=== PATIENT | female | born 1975 | race Caucasian/White ===

== ENCOUNTER 2020-06-17 16:54 | Emergency (ER) | payer OTHER, SELFPAY ==
--- NOTE | ~2020-06-17 | XR_ITS ---
XR wrist RT min 3V DATE: 06/17/2020 17:07 INDICATION: Fall, right wrist injury, lateral pain TECHNIQUE: 4 views of wrist, including forearm COMPARISON: None FINDINGS: No fracture or dislocation, periosteal reaction or bone destruction of the forearm or wrist is evident. Alignment is intact at the elbow and wrist joints. IMPRESSION: Negative Reviewed, dictated and finalized at location A. IMPRESSION: Negative
--- NOTE | 2020-06-17 17:07 | ED.UPPEXIN ---
HPI - Extremity Injury (Upper) General Chief Complaint: Extremity Injury, Upper Stated Complaint: R/wrist pain Time Seen by Provider: 06/17/20 17:07 Source: patient and RN notes reviewed Mode of arrival: ambulatory Limitations: no limitations History of Present Illness HPI narrative: Patient presents today complaining of right wrist and forearm pain after falling from standing height onto outstretched hand. Injury occurred 1.5 hours prior to arrival. She tripped over a dog gate at home. Currently rates her pain 6/10 and has tried ice prior to arrival. MD complaint: injury to: right and forearm Related Data Home Medications Medication Instructions Recorded Confirmed No Home Medications 06/17/20 06/17/20 Allergies Allergy/AdvReac Type Severity Reaction Status Date / Time No Known Allergies Allergy Verified 06/17/20 16:57 Review of Systems Review of Systems: Narrative: CONSTITUTIONAL: Denies body aches, fever, chills, or sweats. EYES: Denies visual changes, redness, or discharge. ENT: Denies rhinorrhea, congestion, sore throat, or otalgia. CARDIOVASCULAR: Denies chest pain, palpitations, or edema. RESPIRATORY: Denies cough or dyspnea. GASTROINTESTINAL: Denies abdominal pain, nausea, vomiting, or diarrhea. GENITOURINARY: Denies dysuria or hematuria. SKIN: Denies rash, itching, or wounds. MUSCULOSKELETAL: Denies back pain, or myalgia. + Right forearm and wrist injury NEUROLOGIC: Denies headache, numbness, tingling, or weakness. PSYCH: Denies depression or anxiety. PMFSH Social History Social History Gender identity (if verbalized by the patient): Female Comments At time of signature, I have reviewed and agree with nursing past medical, surgical, social and family history unless otherwise noted. Please see nursing chart for further information. There is no relevant family history pertinent to the presenting complaint Exam Narrative: Exam Narrative: GENERAL: Well-appearing, well-nourished, and in no acute pain distress. HEAD: Normocephalic, atraumatic. EYES: EOMI. No redness or drainage. Conjunctivae normal. ENT: Mucous membranes pink and moist. NECK: Normal AROM. CHEST: No respiratory distress. EXTREMITIES: Right wrist: No tenderness, edema, ecchymosis, or erythema noted. Distal sensation intact. Capillary refill normal. Radial pulse normal. No snuffbox tenderness. Patient had some mild tenderness to the mid radius without edema, ecchymosis. Pain increases in the forearm with extension, pronation and supination of the wrist. No deformity noted. SKIN: Warm, dry, no rash. Capillary refill normal. Normal skin turgor. NEURO: No focal deficits. Alert and oriented x3. Gait steady. PSYCH: Normal affect. +anxious with constant movement of her right knee up and down throughout exam. Course Vital Signs Vital signs: Vital Signs Temperature 98.8 F 06/17/20 17:10 Pulse Rate 81 06/17/20 17:10 Respiratory Rate 18 06/17/20 17:10 Blood Pressure 142/79 H 06/17/20 17:10 Pulse Oximetry 100 06/17/20 17:10 Temperature 98.8 F 06/17/20 17:10 Pulse Rate 81 06/17/20 17:10 Respiratory Rate 18 06/17/20 17:10 Blood Pressure 142/79 H 06/17/20 17:10 Pulse Oximetry 100 06/17/20 17:10 Reviewed. Pt has been instructed to follow up with her PCP regarding her elevated blood pressure today. MDM - Extremity Injury (Upper) Differential Diagnosis Differential diagnosis: Likely sprain and strain of wrist, fracture of wrist and other (Forearm fracture, contusion) Imaging Data Radiologist's impression: ITS Impressions Wrist X-Ray 06/17/20 17:20 IMPRESSION: Negative Critical Care Time Critical Care Time Critical Care Time: No Discharge Plan Discharge Clinical Impression: Sprain of forearm, right Patient Disposition: Home, Self-Care Condition: Stable Instructions: Sprain (ED) Additional Instructions: Your xray is negative for fracture today. Your s
[2020-06-17 17:10] VITALS: BP 142/79; PULSE 81; RESP 18; TEMP 37.1; O2SAT 100
== END 2020-06-17 17:26 | disposition home or self-care (01) ==
PROVIDERS: Emergency Provider Nurse Practitioner
DX: S59.811A Other specified injuries right forearm, initial encounter (principal); W18.30XA Fall on same level, unspecified, initial encounter
CPT/HCPCS: 73110; 99213; G0463

== ENCOUNTER 2020-10-16 22:45 | Emergency (ER) | payer OTHER, SELFPAY ==
--- NOTE | ~2020-10-16 | XR_ITS ---
EXAMINATION: XR chest 2V EXAM DATE: 10/16/2020 23:07 INDICATION: chest coldness pressure, left hand/arm tingling,. TECHNIQUE: Frontal and lateral projections of the chest obtained and reviewed. There is no prior karen dy for comparison. FINDINGS: The lungs are clear. There are no pleural effusions. The cardiomediastinal silhouette is within normal limits. There is no pneumothorax suspected. The bones and soft tissues are unremarkab le. IMPRESSION: No acute cardiopulmonary findings. Reviewed, dictated and finalized at location G. RIBUTION CLERK
[2020-10-16 22:52] VITALS: BP 161/76; PULSE 82; RESP 16; TEMP 36.4; O2SAT 100
--- NOTE | 2020-10-16 22:58 | ECG_ITS ---
Measurements Intervals [place] Rate: 73 P: 19 SC: 158 QRS: 71 QRSD: 82 T: 39 QT: 362 QTc: 400 Interpretive Statements SINUS RHYTHM CANNOT RULE OUT SEPTAL INFARCT, AGE INDETERMINATE ABNORMAL ECG Electronically Signed On 10-17-2020 7:08:49 SKIDDER OPERATOR by Wai Power D.O.
[2020-10-16 23:22] LABS: Basophils Absolute Auto 0.1 K/mm3 (0.0-0.1); Basophils Percent Auto 0.9 % (0.2-1.2); Eosinophils Absolute Auto 0.3 K/mm3 (0-0.3); Eosinophils Percent Auto 3.9 % (0-4.4); Hematocrit 39.9 % (37.0-47.0); Hemoglobin 13.9 g/dL (12.0-15.0); Immature Granulocyte Absolute 0.02 K/mm3 (0.00-0.031); Immature Granulocyte Percent A 0.3 % (0-0.5); Lymphocytes Absolute Auto 2.35 K/mm3 (0.9-3.2); Mean Corpuscular HGB Conc 34.8 g/dl (32-36); Mean Corpuscular Hemoglobin 33.4 pg (26-34); Mean Corpuscular Volume 95.9 fl (80-100); Monocytes Absolute Auto 0.5 K/mm3 (0.1-0.6); Monocytes Percent Auto 8.3 % (2.6-8.5); Neutrophils Absolute Auto 3.1 K/mm3 (1.3-6.7); Neutrophils Percent Auto 49.6 % (45.5-73.1); Platelet Count Result 325 k/mm3 (150-375); Red Blood Count 4.16 M/mm3 (4.2-5.4); Red Cell Distribution Width 12.2 % (11.5-14.5); White Blood Count 6.4 K/mm3 (4.5-10.0)
[2020-10-16 23:25] LABS: Prothrombin Time 13.4 Seconds (11.1-14.7)
[2020-10-16 23:26] LABS: Anion Gap 6 mmol/L (8-16); Blood Urea Nitrogen 12 mg/dL (7-17); Calcium 9.3 mg/dL (8.4-10.2); Carbon Dioxide 33 mmol/L (22-30); Chloride 100 mmol/L (98-107); Estimated CRCL calculation 83 ml/min; Estimated Glomerular Filt Rate > 60; Glucose 117 mg/dL (65-105); Partial Thromboplastin Time 28.4 SECONDS (22.3-36.8); Potassium 3.8 mmol/L (3.4-5.0); Sodium 139 mmol/L (137-145)
[2020-10-16] MEDS: KETOROLAC 30 MG/ML VIAL (*BKC) IV PUSH (23:27)
[2020-10-16 23:31] VITALS: BP 122/69; PULSE 65; RESP 12; O2SAT 100
[2020-10-16 23:34] VITALS: BP 122/69; PULSE 68; RESP 12; O2SAT 100
[2020-10-16 23:38] LABS: Troponin I < 0.012 ng/mL (0.000-0.034)
[2020-10-17 00:31] VITALS: BP 127/70; PULSE 71; RESP 17; O2SAT 100
[2020-10-17 01:01] VITALS: BP 106/67; PULSE 70; RESP 10; O2SAT 100
--- NOTE | 2020-10-17 01:12 | ED.GENADULT ---
HPI - General Adult General Chief complaint: Chest Pain Stated complaint: L ARM PN/NUMBNESS [id number] Time Seen by Provider: 10/16/20 22:48 History of Present Illness HPI narrative: Patient is a 45-year-old female who presents ER with left arm tingling and pain. Pain began in her upper arm around 6 PM. A while later she can have tingling in her hand. Tingling is persisted and the pain is subsided. She also had some mild left back/neck pain. At 1 point she did have some discomfort in her chest that she describes as being cold, unsure if she was getting anxious. No exertional component. She was laying down at began. No previous cardiac history. No family history. Related Data Allergies Allergy/AdvReac Type Severity Reaction Status Date / Time No Known Allergies Allergy Verified 06/17/20 16:57 Review of Systems Review of Systems: All systems reviewed & are unremarkable except as noted in HPI and below Constitutional: Constitutional: Denies chills, Denies fever(s) and Denies weakness ENT: Denies nasal congestion and Denies sore throat Cardiovascular: Cardiovascular: Reports chest pain, Denies rapid heart rate and Denies radiating jaw, neck or arm pain Respiratory: Respiratory: Denies cough, Denies dyspnea and Denies wheezing Gastrointestinal: Gastrointestinal: Denies nausea and Denies vomiting Neurologic: Denies focal weakness and Reports numbness PMFSH Past Medical History Medical History (Updated 10/17/20 @ 01:17 by Huey Dawson MD) Healthy female adult Surgical History Surgical History (Updated 10/17/20 @ 01:14 by Huey Dawson MD) History of appendectomy History of tonsillectomy Social History Social History (Updated 10/17/20 @ 01:14 by Huey Dawson MD) Smoking status: Never smoker Gender identity (if verbalized by the patient): Female Exam Narrative: Exam Narrative: GENERAL: Well-appearing, well-nourished, and in no acute distress. HEAD: Normocephalic, atraumatic. NECK: Supple. Mild left trapezius tenderness CHEST: Clear to auscultation. No respiratory distress. HEART: Regular rate and rhythm. Normal peripheral pulses. EXTREMITIES: Normal range of motion. No edema. SKIN: Warm, dry, no rash. NEURO: Alert and oriented x3. No sharp touch deficit left arm. PSYCH: Normal mood and affect. Course Course Emergency Course: Symptoms improving with Toradol. Informed of results. Likely cervical radiculopathy. Recommend follow-up with PCP. Vital Signs Vital signs: Vital Signs Temperature 97.6 F 10/16/20 22:52 Pulse Rate 82 10/16/20 22:52 Respiratory Rate 16 10/16/20 22:52 Blood Pressure 161/76 H 10/16/20 22:52 Pulse Oximetry 100 10/16/20 22:52 Temperature 97.6 F 10/16/20 22:52 Pulse Rate 68 10/16/20 23:34 Respiratory Rate 12 10/16/20 23:34 Blood Pressure 122/69 10/16/20 23:34 Pulse Oximetry 100 10/16/20 23:34 Medical Decision Making Vital Signs Vital Signs: Vital Signs Temperature 97.6 F 10/16/20 22:52 Pulse Rate 82 10/16/20 22:52 Respiratory Rate 16 10/16/20 22:52 Blood Pressure 161/76 H 10/16/20 22:52 Pulse Oximetry 100 10/16/20 22:52 Temperature 97.6 F 10/16/20 22:52 Pulse Rate 68 10/16/20 23:34 Respiratory Rate 12 10/16/20 23:34 Blood Pressure 122/69 10/16/20 23:34 Pulse Oximetry 100 10/16/20 23:34 Lab Data Result diagrams: 10/16/20 23:03 10/16/20 23:03 Labs: Lab Results 10/16/20 10/16/20 10/16/20 Range/Units 23:03 23:03 23:03 WBC 6.4 (4.5-10.0) K/mm3 RBC 4.16 L (4.2-5.4) M/mm3 Hgb 13.9 (12.0-15.0) g/dL Hct 39.9 (37.0-47.0) % MCV 95.9 (80-100) fl MCH 33.4 (26-34) pg MCHC 34.8 (32-36) g/dl RDW 12.2 (11.5-14.5) % Plt Count 325 (150-375) k/mm3 MPV 9.0 (7.4-10.4) fl Immature Gran % (Auto) 0.3 (0-0.5) % Neut % (Auto) 49.6 (45.5-73.1) % Lymph % (Auto) 37.0 (18.3-44.2) % [place] % (Aut
[2020-10-17 01:15] VITALS: PULSE 64; RESP 10; O2SAT 100
== END 2020-10-17 01:20 | disposition home or self-care (01) ==
PROVIDERS: Emergency Provider Emergency Medicine; PCP Physician Assistant
DX: M54.12 Radiculopathy, cervical region (principal)
CPT/HCPCS: 36415; 71046; 80048; 84484; 85025; 85610; 85730; 93005; 96374; 99284; J1885

== ENCOUNTER → 2021-12-15 16:01 | Outpatient (CLI) | payer OTHER, SELFPAY ==
--- NOTE | ~2021-12-15 | MM_ITS ---
EXAMINATION: MM scrn rosy implant BI w lottie HISTORY: Screening mammogram TECHNIQUE: Craniocaudal and mediolateral oblique 3-D tomosynthesis images with implant displacement a nd synthetic 2-D images were generated. Craniocaudal and mediolateral oblique views of the breasts wi thout implant displacement were obtained using full field digital mammography. CAD analysis was submi tted and interpreted. COMPARISON: 06/14/2018 BREAST PARENCHYMAL COMPOSITION: The breasts are heterogeneously dense, which may obscure small masses . FINDINGS: There is no evidence of suspicious mass, calcification, or architectural distortion to sugg est malignancy in either breast. There has been no suspicious interval change. IMPRESSION: 1. No mammographic evidence of malignancy. 2. Recommend routine screening mammography in one year. BI-RADS Category 1: Negative Reviewed, dictated and finalized at location A. STRAP CUTTER
== END ==
PROVIDERS: PCP Physician Assistant; Visit Provider Physician Assistant
DX: Z12.31 Encounter for screening mammogram for malignant neoplasm of breast (principal)
CPT/HCPCS: 77063; 77067

== ENCOUNTER 2022-11-02 05:57 | Day surgery (SDC) | payer OTHER, SELFPAY ==
[2022-08-19 14:02] VITALS: BMI 23.2
[2022-10-20 14:53] VITALS: BMI 21.9
--- NOTE | 2022-10-30 12:34 | P.PNAN_ITS ---
Anes - Initial Pre Proc Eval Procedure: Operation Date: 11/02/22 07:30 Proposed Procedures p Screening Colonoscopy - Derrick Rios MD Date/Time: 10/30/22 12:34 Surgeon: Derrick Rios MD Pre Op Diagnosis: Neoplasm screening Patient Data Age: 47 Gender: F Height: 1.7 m Weight: 63.5 kg Allergies Allergy/AdvReac Type Severity Reaction Status Date / Time No Known Allergies Allergy Verified 11/02/22 06:25 Home Medications Medication Instructions Recorded Confirmed Type ibuprofen 200 mg tablet (Advil) 200 mg PO Q6H PRN Headache 10/20/22 11/02/22 History topiramate 50 mg tablet (Topamax) 50 mg PO BID 10/20/22 11/02/22 History Patient hx anesthesia problems: none Family hx anesthesia problems: none Results Review: All pre-operative results and documents have been reviewed as part of the pre- operative evaluation. PMFSH Past Medical History Medical History (Updated 10/30/22 @ 12:34 by Hussein Grider DO) Migraine Surgical History Surgical History (Updated 10/30/22 @ 12:34 by Hussein Grider DO) History of appendectomy History of hysterectomy History of tonsillectomy Social History Social History (Updated 10/17/20 @ 01:14 by Huey Dawson MD) Smoking status: Never smoker Substance use: never Substance use type: does not use Living arrangements: with family Gender identity (if verbalized by the patient): Female Spiritual care concerns: No Anes - Eval Final PreProcedure Day of Procedure 10/30/22 12:34 Patient weight: normal Heart: regular rate and rhythm Lungs: clear to auscultation and normal air movement Airway: Mallampati scale class II Neurological: alert and oriented Last oral intake: >/= 8 hours ASA classification: II Emergent: no Anesthetic plan: proceed Anesthesia type and monitoring: general GIVS and standard monitoring Results Review: All pre-operative results and documents have been reviewed as part of the pre- operative evaluation. Informed Consent: The patient's anesthetic plan and its attendant risks and benefits were discussed with the patient/family/POA. Questions were solicited and answers provided to the satisfaction of the patient/family/POA.
[2022-11-02 06:15] VITALS: BP 96/77; PULSE 124; RESP 16; TEMP 36.2; O2SAT 100
[2022-11-02] MEDS: LACTATED RINGERS 1,000 ML 150 ML IV CONT (06:29)
--- NOTE | 2022-11-02 07:29 | PM.HPGS ---
History of Present Illness History of Present Illness Consent: Risks, benefits, and alternatives have been discussed and questions answered. Patient agrees to proceed with procedure. Chief complaint: Neoplasm screening Narrative: Janae German is a 47 year old female here for first screening colonoscopy Review of Systems Constitutional: Constitutional: Denies headache(s) and Denies weakness Eyes: Eyes: Denies blurry vision ENT: Reports Normal hearing present, Denies headache(s) and Denies neck pain Cardiovascular: Cardiovascular: Denies chest pain and Denies dyspnea Respiratory: Respiratory: Denies dyspnea Gastrointestinal: Gastrointestinal: Reports no additional gastrointestinal complaints Genitourinary: Genitourinary: Denies dysuria Musculoskeletal: Musculoskeletal: Denies neck pain Integumentary/Breasts: Skin/Breast: Denies dry skin Neurologic: Reports Normal hearing present, Denies headache(s) and Denies weakness Psychiatric: Psychiatric: Denies anxiety Endocrine: Endocrine: Denies change in body appearance Hematologic/Lymphatic: Hematologic/Lymphatic: Denies easy bleeding Allergic/Immunologic: Allergic/Immunologic: Denies urticaria PMFSH Past Medical History Medical History (Updated 11/02/22 @ 07:30 by Derrick Rios MD) Colon cancer screening Migraine Surgical History Surgical History (Updated 10/30/22 @ 12:34 by Hussein Grider DO) History of appendectomy History of hysterectomy History of tonsillectomy Social History Social History (Updated 10/17/20 @ 01:14 by Huey Dawson MD) Smoking status: Never smoker Substance use: never Substance use type: does not use Living arrangements: with family Gender identity (if verbalized by the patient): Female Spiritual care concerns: No Meds Home Medications and Allergies Home Medications Medication Instructions Recorded Confirmed Type ibuprofen 200 mg tablet (Advil) 200 mg PO Q6H PRN Headache 10/20/22 11/02/22 History topiramate 50 mg tablet (Topamax) 50 mg PO BID 10/20/22 11/02/22 History Allergies Allergy/AdvReac Type Severity Reaction Status Date / Time No Known Allergies Allergy Verified 11/02/22 06:25 Vital Signs Vital Signs - 24 hr 11/02/22 06:15 Temperature 97.2 F L Pulse Rate 124 H Respiratory Rate 16 Blood Pressure 96/77 L Pulse Oximetry 100 Oxygen Delivery Room Air Exam Const: General: comfortable and no acute distress HENMT: Face/Nose/Sinus: Normal nares present Eyes: General: appearance normal, both eyes and all related structures Neck: Neck: no JVD Resp: Auscultation: clear to auscultation bilaterally Cardio: Rate: regular rate Rhythm: regular rhythm GI: Inspection: non-distended GI Palp: Yes Soft to palpation Skin: General skin exam: normal color Neuro: General: gait normal Speech: normal speech Extrem: General: normal to inspection Psych: Mental Status: mental status grossly normal Assessment and Plan Assessment and plan (1) Colon cancer screening: Code(s): Z12.11 - Encounter for screening for malignant neoplasm of colon Status: Acute Assessment and Plan: colonoscopy
[2022-11-02 07:53] VITALS: BP 96/53; PULSE 80; RESP 18; O2SAT 100
[2022-11-02 08:03] VITALS: BP 95/73; PULSE 66; RESP 18; O2SAT 100
[2022-11-02 08:13] VITALS: BP 96/71; PULSE 65; RESP 18; O2SAT 100
--- NOTE | 2022-11-02 12:51 | WPDANESPN ---
Anes - Prog Note Post-Op Date/Time: 11/02/22 12:51 Cardiovascular status: normal Respiratory status: normal Airway patency: baseline Mental status: baseline Post-Op hydration status: normal Vital Signs: Last Vital Signs Temp 36.2 C L 11/02/22 06:15 Pulse 65 11/02/22 08:13 Resp 18 11/02/22 08:13 BP 96/71 L 11/02/22 08:13 Pulse Ox 100 11/02/22 08:13 O2 Del Method Room Air 11/02/22 08:13 Pain Score (VAS): 0 I/O: Intake & Output 11/01/22 11/02/22 11/02/22 23:59 07:59 15:59 Intake Total 400 Balance 400 Post-procedural complaints: none Patient Feedback: Patient satisfied with anesthetic care. Other Findings: Patient vital signs back to baseline. Patient denies nausea and vomiting. Patient's pain under control. Patient OK for discharge.
== END 2022-11-02 08:30 | disposition home or self-care (01) ==
PROVIDERS: PCP Physician Assistant; Visit Provider Internal Medicine Gastroenterology
PROC: 0DJD8ZZ Inspection of Lower Intestinal Tract, Via Natural or Artificial Opening Endoscopic (ICD-10-PCS; CPT 45378; principal; 2022-11-02 07:30)
DX: Z12.11 Encounter for screening for malignant neoplasm of colon (principal)
CPT/HCPCS: 45385

== ENCOUNTER 2022-11-02 07:00 | Outpatient (NON) | payer OTHER, SELFPAY | END 2022-11-02 07:01 | disposition home or self-care (01) | LOC: ANHLAB 11-03 12:41 | PROVIDERS: PCP Physician Assistant; Visit Provider Internal Medicine Gastroenterology | DX: Z12.11 Encounter for screening for malignant neoplasm of colon (principal); D12.3 Benign neoplasm of transverse colon | CPT/HCPCS: 88305 ==

== ENCOUNTER 2023-12-13 07:08 | Outpatient (CLI) | payer OTHER, SELFPAY ==
--- NOTE | ~2023-12-13 | MM_ITS ---
EXAMINATION: MM scrn rosy implant BI w lottie HISTORY: Screening mammogram TECHNIQUE: Craniocaudal and mediolateral oblique 3-D tomosynthesis images with implant displacement a nd synthetic 2-D images were generated. Craniocaudal and mediolateral oblique views of the breasts wi thout implant displacement were obtained using full field digital mammography. CAD analysis was submi tted and interpreted. COMPARISON: 12/15/2021, 06/14/2018 bilateral implant screening mammogram examinations since BREAST PARENCHYMAL COMPOSITION: The breasts are heterogeneously dense, which may obscure small masses . FINDINGS: Status post bilateral augmentation mammoplasty. There is no evidence of suspicious mass, ca lcification, or architectural distortion to suggest malignancy in either breast. There has been no cat spicious interval change. IMPRESSION: 1. No mammographic evidence of malignancy. 2. Recommend routine screening mammography in one year. BI-RADS Category 1: Negative Reviewed, dictated and finalized at location A. LY DEVELOPMENT EXTENSION SPECIALIST
== END 2023-12-13 07:09 | disposition home or self-care (01) ==
LOC: CHSIMG 07:10
PROVIDERS: PCP Physician Assistant; Visit Provider Physician Assistant
DX: Z12.31 Encounter for screening mammogram for malignant neoplasm of breast (principal)
CPT/HCPCS: 77063; 77067

== ENCOUNTER 2024-04-25 10:53 | Emergency (ER) | payer SELFPAY ==
[2024-04-25] VITALS (21 sets, daily range): BP systolic 106–113; BP diastolic 65–69; PULSE 57–80; RESP 11–25; O2SAT 97–100
--- NOTE | ~2024-04-25 | XR_ITS ---
Clinical Indication: Palpitations PA and lateral views of the chest: Comparison: 10/16/2020 Findings: The lungs are clear, without evidence of focal consolidation or pleural effusion. Cardiome diastinal silhouette is within normal limits. Bones and soft tissues are unremarkable. Impression: Normal chest. Reviewed, dictated and finalized at location . Impression: Normal chest.
--- NOTE | 2024-04-25 10:56 | ECG_ITS ---
Test Date: 2024-04-25 14:05:14 Measurements Intervals [place] Rate: 58 P: 28 DE: 170 QRS: 72 QRSD: 81 T: 60 QT: 383 QTc: 378 Interpretive Statements SINUS BRADYCARDIA BORDERLINE ECG No previous ECG available for comparison Electronically Signed On 04-26-2024 17:19:51 CDT by Wai Power D.O.
[2024-04-25 11:47] LABS: Eosinophils Absolute Auto 0.1 K/mm3 (0-0.3); Eosinophils Percent Auto 1.7 % (0-4.4); Hematocrit 36.9 % (37.0-47.0); Hemoglobin 12.7 g/dL (12.0-15.0); Immature Granulocyte Absolute 0.01 K/mm3 (0.00-0.031); Immature Granulocyte Percent A 0.2 % (0-0.5); Lymphocytes Absolute Auto 0.77 K/mm3 (0.9-3.2); Lymphocytes Percent Auto 18.4 % (18.3-44.2); Mean Corpuscular HGB Conc 34.4 g/dl (32-36); Mean Corpuscular Hemoglobin 33.1 pg (26-34); Mean Corpuscular Volume 96.1 fl (80-100); Mean Platelet Volume 8.8 fl (7.4-10.4); Monocytes Absolute Auto 0.2 K/mm3 (0.1-0.6); Monocytes Percent Auto 4.5 % (2.6-8.5); Neutrophils Absolute Auto 3.1 K/mm3 (1.3-6.7); Neutrophils Percent Auto 74.2 % (45.5-73.1); Platelet Count Result 281 k/mm3 (150-375); Red Blood Count 3.84 M/mm3 (4.2-5.4); Red Cell Distribution Width 11.9 % (11.5-14.5); White Blood Count 4.2 K/mm3 (4.5-10.0)
[2024-04-25 11:58] LABS: Alanine Aminotransferase 17 U/L (6-35); Albumin Level 4.4 g/dL (3.5-5.1); Alkaline Phosphatase 61 U/L (38-126); Anion Gap 9 mmol/L (4-12); Aspartate Amino Transferase 22 U/L (14-36); Bilirubin,Total 0.6 mg/dL (0.2-1.3); Blood Urea Nitrogen 9 mg/dL (7-17); Calcium 9.2 mg/dL (8.4-10.2); Carbon Dioxide 27 mmol/L (22-30); Chloride 104 mmol/L (98-107); Estimated CRCL calculation 79 ml/min; Estimated Glomerular Filt Rate > 60; Glucose 110 mg/dL (65-110); Lipase 112 U/L (23-300); Potassium 3.7 mmol/L (3.4-5.0); Sodium 140 mmol/L (137-145)
[2024-04-25 12:03] LABS: Partial Thromboplastin Time 27.2 Seconds (22.3-36.8)
[2024-04-25 12:09] LABS: Troponin I < 0.012 ng/mL (0.000-0.034)
--- NOTE | 2024-04-25 13:44 | ED.GENADULT ---
HPI - General Adult General Chief complaint: Arrhythmia/Palpitations Stated complaint: Heart palpitations, Nausea, L foot and arm numbnes Time Seen by Provider: 04/25/24 11:52 History of Present Illness HPI narrative: This is a 49-year-old female with history of complex migraines presenting for palpitations. Last night she said that she developed palpitations and felt off in her chest. She took some aspirin and it resolved she went to bed. When she woke up this morning she was cleaning her bathroom when she had 1 episode of nausea. She went late on her bed and was resting with her left arm above her head. She then developed some tingling in her left hand. Her symptoms have since improved but she is concerned that she was having chest pain and left arm symptoms and was worried about having heart attack. Patient has a history of complex migraines with intermittent diplopia. She denies any weakness, slurred speech, difficulty swallowing speaking or balance issues. No difficulty breathing, lower extremity edema, history of/or risk factors for DVT/PEs. Related Data Home Medications Medication Instructions Recorded Confirmed ibuprofen 200 mg tablet (Advil) 200 mg PO Q6H PRN Headache 10/20/22 11/02/22 topiramate 50 mg tablet (Topamax) 50 mg PO BID 10/20/22 11/02/22 Allergies Allergy/AdvReac Type Severity Reaction Status Date / Time No Known Allergies Allergy Verified 04/25/24 11:14 [facility] Past Medical History Medical History Colon cancer screening Migraine Surgical History Surgical History History of appendectomy History of hysterectomy History of tonsillectomy Social History Social History Smoking status: Never smoker Substance use: never Substance use type: does not use Living arrangements: with family Gender identity (if verbalized by the patient): Female Spiritual care concerns: No Exam Narrative: APPEARANCE: No apparent distress. Head: atraumatic. EYES: EOMI, NOSE: Atraumatic NECK: Trachea midline RESPIRATORY: No increased rate of breathing, CTAB CARDIOVASCULAR: RRR, ABDOMINAL: Non-distended MUSCULOSKELETAl: No obvious deformities NEURO: Alert. Cranial nerves 2-12 grossly intact. Sensation light touch, motor function cerebellar function intact for 4 extremities. Gait exam was normal. SKIN:: Warm, dry. Normal color PSYCHIATRIC: Normal affect Course Vital Signs Vital signs: Vital Signs Pulse Rate 70 04/25/24 11:08 Respiratory Rate 15 04/25/24 11:08 Pulse Oximetry 100 04/25/24 11:08 Pulse Rate 62 04/25/24 14:07 Respiratory Rate 15 04/25/24 14:07 Blood Pressure 106/65 04/25/24 14:07 Pulse Oximetry 100 04/25/24 13:45 Medical Decision Making MDM Narrative Medical decision making narrative: -Course: 49-year-old female presenting with intermittent palpitations, nausea, and tingling in her left arm. The tingling in her left hand likely a peripheral nerve palsy from lying down with her hand above her head. All of these symptoms have improved by time she was in the ED. EKG normal. Troponins negative x2. Neurologic exam is normal. Patient has not had a recurrence of her symptoms since being in the emergency department. On re-evaluation the patient's vital signs are still stable. She is very well-appearing. Unclear as to the etiology for symptoms but at this time appears stable for outpatient follow-up. This was discussed with the patient and she is in agreement. Discussed return precautions. -DDX includes but is not limited to: ACS, pneumonia, cardiac dysrhythmia, dehydration, anxiety, CVA -Co-morbidities complicating care: Complex migraines -Independent interpretation of studies: Labs reviewed within normal limits. Chest x-ray normal Independent EKG interpretation: Rhythm [sinus]
--- NOTE | 2024-04-25 13:54 | ECG_ITS ---
Test Date: 2024-04-25 11:03:09 Measurements Intervals [place] Rate: 79 P: 41 CT: 143 QRS: 69 QRSD: 82 T: 52 QT: 347 QTc: 398 Interpretive Statements SINUS RHYTHM CANNOT R/O SEPTAL INFARCT, AGE INDETERMINATE BORDERLINE ST ABNORMALITY- ANTEROLAT/INF LEADS BASELINE ARTIFACT- II, III, AVR, AVF ABNORMAL ECG No previous ECG available for comparison Electronically Signed On 04-26-2024 17:20:28 CDT by Wai Power D.O.
[2024-04-25 14:36] LABS: Troponin I < 0.012 ng/mL (0.000-0.034)
== END 2024-04-25 15:15 | disposition home or self-care (01) ==
PROVIDERS: Emergency Provider Emergency Medicine; PCP Physician Assistant
DX: R00.2 Palpitations (principal); Z90.710 Acquired absence of both cervix and uterus
CPT/HCPCS: 36415; 71046; 80053; 83690; 84484; 85025; 85610; 85730; 93005; 99284